=== PATIENT | female | born 1990 | race African-American/Black ===

== ENCOUNTER 2020-03-06 14:50 | Observation (INO) | payer MEDICAID ==
[~2020-03-06] VITALS: Ht 165.1 cm; Wt 79.8 kg
[2020-03-06] MEDS ORDERED: FERR-71 MT (15:11)
[2020-03-06] MEDS ORDERED: PNV1TABL76 PO (15:11)
== END 2020-03-06 16:00 | disposition home or self-care (01) ==
LOC: 8 EST LDRP 14:50
PROVIDERS: ADMIT Specialist; ATTEND Specialist
DX: O9A.212 Injury, poisoning and certain other consequences of external causes complicating pregnancy, second trimester (principal); T63.441A Toxic effect of venom of bees, accidental (unintentional), initial encounter; O36.8120 Decreased fetal movements, second trimester, not applicable or unspecified; Z3A.27 27 weeks gestation of pregnancy
CPT/HCPCS: 99281; G0378